=== PATIENT | female | born 1955 | race African-American/Black ===

== ENCOUNTER 2025-08-13 18:09 | Emergency (ER) | payer MEDICARE, MEDICAID ==
[~2025-08-13] VITALS: Ht 165.1 cm; Wt 93.4 kg
[2025-08-13] MEDS ORDERED: IBUPROFEN 600 MG TABLET ONE (18:44)
[2025-08-13] MEDS ORDERED: ACETAMINOPHEN ES 500 MG TABLET ONE (18:44)
[2025-08-13] MEDS: ACETAMINOPHEN ES 500 MG TABLET PO ONE (18:46)
[2025-08-13] MEDS: IBUPROFEN 600 MG TABLET PO ONE (18:46)
[2025-08-13] MEDS ORDERED: IBUP-1490 PO (21:39)
[2025-08-13 22:28] VITALS: BP 141/76; TEMP 98.2; O2SAT 95
== END 2025-08-13 22:28 | disposition home or self-care (01) ==
LOC: ER 18:36
DX: S16.1XXA Strain of muscle, fascia and tendon at neck level, initial encounter (principal); M47.812 Spondylosis without myelopathy or radiculopathy, cervical region; G89.29 Other chronic pain; I10 Essential (primary) hypertension; M10.9 Gout, unspecified; Z88.0 Allergy status to penicillin; Z91.040 Latex allergy status; Z88.8 Allergy status to other drugs, medicaments and biological substances; Z86.79 Personal history of other diseases of the circulatory system; V43.62XA Car passenger injured in collision with other type car in traffic accident, initial encounter; Y93.89 Activity, other specified; Y92.488 Other paved roadways as the place of occurrence of the external cause; Y99.8 Other external cause status
CPT/HCPCS: 70450-TC; 72125-TC; 72131-TC